=== PATIENT | female | born 1955 | race Caucasian/White ===

== ENCOUNTER 2022-03-29 09:08 | Outpatient (CLI) | payer MEDICARE, OTHER | END 2022-03-29 09:09 | disposition home or self-care (01) | LOC: RAD 09:08 | PROVIDERS: ATTEND Internal Medicine Critical Care Medicine | DX: R06.00 Dyspnea, unspecified (principal) | CPT/HCPCS: 71046 ==

== ENCOUNTER 2022-06-16 09:32 | Outpatient (CLI) | payer MEDICARE, OTHER | END 2022-06-16 09:33 | disposition home or self-care (01) | LOC: RAD 09:32 | PROVIDERS: ATTEND Internal Medicine Critical Care Medicine | DX: R06.00 Dyspnea, unspecified (principal) | CPT/HCPCS: 71046 ==